=== PATIENT | female | born 1950 | race Caucasian/White ===

== ENCOUNTER 2018-10-10 08:43 | Inpatient (IN) ==
[~2018-10-10 08:43] MED LIST: Vancomycin 1,000 MG, Sodium Chloride IRRigation 1,000 ML IR ONE
[2018-10-10] MEDS ORDERED: Calcium Gluconate 1,000 MG/10 ML VIAL ONE (09:12)
[2018-10-10] MEDS ORDERED: Heparin 1,000 UNITS/500 mL 1,000 ML ONE (09:12)
[2018-10-10] MEDS ORDERED: Albuterol 2.5 MG/3 ML NEBULIZER IH ONE (09:31)
[2018-10-10] MEDS ORDERED: CeFAZolin Syr 2,000MG/20 ML 2,000 MG/20 ML SYRINGE IVPB ONE (09:31)
[2018-10-10] MEDS ORDERED: Albuterol 2.5 MG/3 ML NEBULIZER ONE (09:33)
[2018-10-10] MEDS ORDERED: *HR* OxyCODONE Immed Rel 5 MG TABLET PO ONE (09:40)
[2018-10-10] MEDS ORDERED: Acetaminophen IV 1,000 MG/100 ML INFUS..BTL IVPB ONE (09:41)
[2018-10-10] MEDS ORDERED: *HR* Promethazine 25 MG/ML VIAL IVP PRN (09:43)
[2018-10-10] MEDS ORDERED: *HR* OxyCODONE Immed Rel 5 MG TABLET PO PRN (09:43)
[2018-10-10] MEDS ORDERED: Ringers Solution, Lactated 1,000 ML IVC SCH (09:45)
[2018-10-10] MEDS ORDERED: NiCARdipine 2.5 MG/10 ML Syringe IVPB ONE (10:54)
[2018-10-10] MEDS ORDERED: *HR* Vasopressin 20 UNIT/ML VIAL ONE (10:54)
[2018-10-10 11:34] LABS: ABG Base Excess -4 mEq/L (-2 to 3); ABG Chloride 97 mEq/L (98-107); ABG Glucose 197 mg/dL (60-95); ABG HCO3 23 mEq/L (21-27); ABG Ionized Calcium 0.27 mmol/L (1.15-1.35); ABG Oxygen Saturation 100 % (95-98); ABG PCO2 46 mmHg (35-45); ABG PO2 277 mmHg (85-104); ABG TCO2 24 mEq/L (20-26)
[2018-10-10 13:42] LABS: ABG Base Excess -2 mEq/L (-2 to 3); ABG Chloride 101 mEq/L (98-107); ABG Glucose 103 mg/dL (60-95); ABG HCO3 22 mEq/L (21-27); ABG Ionized Calcium 1.13 mmol/L (1.15-1.35); ABG Oxygen Saturation 100 % (95-98); ABG PCO2 35 mmHg (35-45); ABG PH 7.42 pH Units (7.32-7.45); ABG PO2 236 mmHg (85-104); ABG TCO2 24 mEq/L (20-26)
[2018-10-10] MEDS ORDERED: Protamine Sulfate 50 MG/5 ML VIAL IVP ONE (15:18)
[2018-10-10] MEDS ORDERED: Fluticasone Propionate Nasal 50 MCG/SPRAY BOTTLE NS PRN (18:18)
[2018-10-10] MEDS ORDERED: *HR* HYDROcodone/Acet 5/325 mg TABLET PO PRN (18:18)
[2018-10-10] MEDS ORDERED: *HR* Labetalol 20 MG/4 ML SYRINGE IVP PRN (18:18)
[2018-10-10] MEDS ORDERED: Ondansetron 4 MG/2 ML VIAL IVP PRN (18:18)
[2018-10-10] MEDS ORDERED: Acetaminophen 325 MG TABLET PO PRN (18:18)
[2018-10-10] MEDS ORDERED: 0.9 % Sodium Chloride 1,000 ML IVC SCH (18:18)
[2018-10-10] MEDS ORDERED: Naloxone 0.4 MG/ML INJ IVP PRN (18:18)
[2018-10-10] MEDS: *HR* OxyCODONE Immed Rel 5 MG TABLET PO PRN (18:49)
[2018-10-10] MEDS: *HR* Metoprolol 5 MG/5 ML VIAL IVP SCH (18:53)
[2018-10-11] MEDS: *HR* Metoprolol 5 MG/5 ML VIAL IVP SCH ×2 (00:25→05:56)
[2018-10-11 02:15] LABS: Basophils % 0.1 %; Immature Granulocytes % 0.4 % (0-4); Lymphocytes # 0.8 K/mcL (0.6-4.6); Lymphocytes % 5.1 %; Mean Corpuscular HGB Conc 33.3 g/dL (31.6-35.5); Mean Corpuscular Hemoglobin 33.4 pg (28.0-33.3); Mean Corpuscular Volume 100.3 fL (83.0-100.0); Mean Platelet Volume 12.3 fL (9.4-12.4); Monocytes # 1.3 K/mcL (0.0-1.3); Monocytes % 8.2 %; Neutrophils # 13.9 K/mcL (1.6-8.9); Platelet Count 182 K/mcL (140-400); Red Blood Count 2.99 M/mcL (3.82-4.97); Red Cell Distribution Width 13.3 % (11.5-14.5); Segmented Neutrophils % 86.2 %; White Blood Count 16.2 K/mcL (4.3-11.1)
[2018-10-11 03:53] LABS: BUN/Creatinine Ratio 22 (6-26); Blood Urea Nitrogen 12 mg/dL (8-23); Calcium 8.2 mg/dL (8.6-10.3); Carbon Dioxide 22 mEq/L (23-29); Chloride 103 mEq/L (98-107); Glucose 142 mg/dL (70-105); Osmolality,Calculated 278 (280-300); Potassium 4.6 mEq/L (3.5-5.1); Sodium 133 mEq/L (136-145); eGFR For African Americans > 60 (> 60); eGFR For Non-African Americans > 60 (> 60)
[2018-10-11] MEDS ORDERED: *HR* Heparin 5,000 UNIT/ML VIAL SQ SCH ×2 (06:00)
[2018-10-11] MEDS: *HR* OxyCODONE Immed Rel 5 MG TABLET PO PRN (06:14)
[2018-10-11 07:51] VITALS: BP 115/60
[2018-10-11] MEDS ORDERED: Aspirin Enteric Coated 81 MG Tablet PO SCH (09:00)
[2018-10-11] MEDS ORDERED: Loratadine 10 MG TABLET PO SCH (09:00)
[2018-10-11] MEDS ORDERED: Spironolactone 25 MG TABLET PO SCH (09:00)
[2018-10-11] MEDS ORDERED: Furosemide 40 MG TABLET PO SCH (09:00)
[2018-10-11] MEDS ORDERED: Metoprolol XL (24 HR) Succ 25 MG TAB.ER.24H PO SCH (09:00)
== END 2018-10-11 10:45 | disposition home or self-care (01) | DRG 253 ==
LOC: SAMDAY 08:43 → 2NNU 18:34
PROVIDERS: ADMIT Surgery; ATTEND Surgery
PROC: VASFFBG (ICD-10-PCS; 2018-10-10 10:40)

== ENCOUNTER 2018-10-22 21:45 | Inpatient (IN) ==
[2018-10-23] MEDS ORDERED: Naloxone 0.4 MG/ML INJ IVP PRN ×2 (03:04→03:37)
[2018-10-23] MEDS: 0.9 % Sodium Chloride 1,000 ML IVC SCH ×2 (03:54→17:41)
[2018-10-23 04:35] LABS: Basophils % 0.4 %; Eosinophils # 0.1 K/mcL (0.0-0.6); Hematocrit 27.4 % (35.3-44.9); Hemoglobin 8.6 g/dL (11.5-15.4); Immature Granulocytes % 0.4 % (0-4); Lymphocytes # 1.5 K/mcL (0.6-4.6); Lymphocytes % 15.5 %; Mean Corpuscular HGB Conc 31.4 g/dL (31.6-35.5); Mean Corpuscular Hemoglobin 31.7 pg (28.0-33.3); Mean Corpuscular Volume 101.1 fL (83.0-100.0); Mean Platelet Volume 12.6 fL (9.4-12.4); Monocytes % 10.1 %; Neutrophils # 7.2 K/mcL (1.6-8.9); Platelet Count 314 K/mcL (140-400); Red Blood Count 2.71 M/mcL (3.82-4.97); Red Cell Distribution Width 14.5 % (11.5-14.5); Segmented Neutrophils % 72.6 %; White Blood Count 9.9 K/mcL (4.3-11.1)
[2018-10-23 04:43] LABS: INR 1.3; Prothrombin Time 15.3 Seconds (9.4-12.1)
[2018-10-23 04:45] LABS: Activated Partial Thrombo Time 33.4 Seconds (26.0-36.0)
[2018-10-23 04:55] LABS: Alanine Aminotransferase 8 Units/L (7-52); Albumin 3.4 g/dL (3.5-5.7); Albumin/Globulin Ratio 1.1 (1.1-2.2); Alkaline Phosphatase 65 Units/L (34-104); Aspartate Amino Transferase 9 Units/L (13-39); BUN/Creatinine Ratio 16 (6-26); Bilirubin,Total 0.5 mg/dL (0.3-1.0); Blood Urea Nitrogen 11 mg/dL (8-23); Calcium 8.6 mg/dL (8.6-10.3); Carbon Dioxide 22 mEq/L (23-29); Chloride 101 mEq/L (98-107); Glucose 103 mg/dL (70-105); Magnesium 1.9 mg/dL (1.6-2.6); Osmolality,Calculated 276 (280-300); Potassium 3.9 mEq/L (3.5-5.1); Sodium 133 mEq/L (136-145); Total Protein 6.4 g/dL (6.4-8.9); Troponin I < 0.03 ng/mL (< 0.04); eGFR For African Americans > 60 (> 60); eGFR For Non-African Americans > 60 (> 60)
[2018-10-23] MEDS: Piperacillin/Tazobactam 3.375 GM in 0.9 % Sodium Chloride Mini Bag 100 ML IVPB SCH ×2 (10:15→16:19)
[2018-10-23] MEDS ORDERED: Fluticasone Propionate Nasal 50 MCG/SPRAY BOTTLE NS PRN (13:20)
[2018-10-23] MEDS: Apixaban 5 MG TABLET PO SCH (20:59)
[2018-10-23 21:20] LABS: Bilirubin,Urine Negative (Negative); Blood,Urine Negative (Negative); Clarity,Urine Clear (Clear); Color,Urine Yellow (Yellow); Glucose,Urine (UA) Normal (Normal); Ketones,Urine Negative (Negative); Leukocyte Esterase,Urine Negative (Negative); Nitrite,Urine Negative (Negative); Protein,Urine Negative (Neg-Trace); Specific Gravity,Urine 1.016 (1.010-1.025); Urobilinogen,Urine Normal (Normal)
[2018-10-24] MEDS: Piperacillin/Tazobactam 3.375 GM in 0.9 % Sodium Chloride Mini Bag 100 ML IVPB SCH ×3 (00:54→15:43)
[2018-10-24 02:35] LABS: Basophils # 0.1 K/mcL (0.0-0.2); Basophils % 0.8 %; Eosinophils # 0.4 K/mcL (0.0-0.6); Eosinophils % 4.6 %; Hemoglobin 8.6 g/dL (11.5-15.4); Immature Granulocytes % 0.4 % (0-4); Lymphocytes # 1.8 K/mcL (0.6-4.6); Lymphocytes % 22.9 %; Mean Corpuscular HGB Conc 30.7 g/dL (31.6-35.5); Mean Corpuscular Hemoglobin 32.1 pg (28.0-33.3); Mean Corpuscular Volume 104.5 fL (83.0-100.0); Mean Platelet Volume 12.2 fL (9.4-12.4); Monocytes % 12.6 %; Neutrophils # 4.6 K/mcL (1.6-8.9); Platelet Count 306 K/mcL (140-400); Red Blood Count 2.68 M/mcL (3.82-4.97); Red Cell Distribution Width 14.6 % (11.5-14.5); Segmented Neutrophils % 58.7 %; White Blood Count 7.8 K/mcL (4.3-11.1)
[2018-10-24 02:54] LABS: BUN/Creatinine Ratio 12 (6-26); Blood Urea Nitrogen 8 mg/dL (8-23); Calcium 8.4 mg/dL (8.6-10.3); Carbon Dioxide 24 mEq/L (23-29); Chloride 103 mEq/L (98-107); Glucose 113 mg/dL (70-105); Osmolality,Calculated 277 (280-300); Potassium 4.1 mEq/L (3.5-5.1); Sodium 134 mEq/L (136-145); eGFR For African Americans > 60 (> 60); eGFR For Non-African Americans > 60 (> 60)
[2018-10-24] MEDS: Spironolactone 25 MG TABLET PO SCH (09:06)
[2018-10-24] MEDS: Apixaban 5 MG TABLET PO SCH (09:06)
[2018-10-24] MEDS: Furosemide 40 MG TABLET PO SCH (09:06)
[2018-10-24] MEDS: Aspirin Enteric Coated 81 MG Tablet PO SCH (09:06)
[2018-10-24] MEDS: Metoprolol XL (24 HR) Succ 25 MG TAB.ER.24H PO SCH (09:06)
[2018-10-25] MEDS: Piperacillin/Tazobactam 3.375 GM in 0.9 % Sodium Chloride Mini Bag 100 ML IVPB SCH ×3 (00:46→15:38)
[2018-10-25 06:34] LABS: Hematocrit 28.5 % (35.3-44.9); Mean Corpuscular HGB Conc 31.6 g/dL (31.6-35.5); Mean Corpuscular Hemoglobin 32.3 pg (28.0-33.3); Mean Corpuscular Volume 102.2 fL (83.0-100.0); Mean Platelet Volume 12.2 fL (9.4-12.4); Platelet Count 329 K/mcL (140-400); Red Blood Count 2.79 M/mcL (3.82-4.97); Red Cell Distribution Width 14.6 % (11.5-14.5); White Blood Count 7.2 K/mcL (4.3-11.1)
[2018-10-25 07:02] LABS: BUN/Creatinine Ratio 10 (6-26); Blood Urea Nitrogen 7 mg/dL (8-23); Calcium 8.6 mg/dL (8.6-10.3); Carbon Dioxide 25 mEq/L (23-29); Chloride 101 mEq/L (98-107); Glucose 103 mg/dL (70-105); Osmolality,Calculated 280 (280-300); Potassium 4.1 mEq/L (3.5-5.1); Sodium 136 mEq/L (136-145); eGFR For African Americans > 60 (> 60); eGFR For Non-African Americans > 60 (> 60)
[2018-10-25 07:19] LABS: Folate 8.3 ng/mL (3.0-16.0)
[2018-10-25] MEDS: Spironolactone 25 MG TABLET PO SCH (08:29)
[2018-10-25] MEDS: Metoprolol XL (24 HR) Succ 25 MG TAB.ER.24H PO SCH (08:29)
[2018-10-25] MEDS: Aspirin Enteric Coated 81 MG Tablet PO SCH (08:29)
[2018-10-25] MEDS: Furosemide 40 MG TABLET PO SCH (08:30)
[2018-10-25 11:25] LABS: C-Reactive Protein 18 mg/L (Less than 10)
[2018-10-25] MEDS ORDERED: *HR* Propofol 200 MG/20 ML VIAL IVP ONE (18:16)
[2018-10-25] MEDS ORDERED: Lidocaine -MPF 2% 2 ML VIAL ONE (18:16)
[2018-10-25] MEDS ORDERED: Dexamethasone 4 MG/ML VIAL ONE (18:16)
[2018-10-25] MEDS ORDERED: *HR* FentaNYL (PF) 100 MCG/2 ML VIAL ONE ×2 (18:16→18:51)
[2018-10-25] MEDS ORDERED: Ondansetron 4 MG/2 ML VIAL ONE (18:16)
[2018-10-25] MEDS ORDERED: Vancomycin 1,000 MG VIAL ONE ×2 (18:21→18:55)
[2018-10-25] MEDS ORDERED: *HR* PHENYLEPHRINE 1,000 MCG/10 ML SYRINGE IVP ONE (18:53)
[2018-10-25] MEDS ORDERED: *HR* HYDROMORPHONE 2 MG/ML VIAL ONE (19:04)
[2018-10-25] MEDS ORDERED: *HR* OxyCODONE Immed Rel 5 MG TABLET PO PRN ×2 (21:49)
[2018-10-25] MEDS ORDERED: Acetaminophen 325 MG TABLET PO PRN ×2 (21:49)
[2018-10-25] MEDS ORDERED: *HR* HYDROcodone/Acet 5/325 mg TABLET PO PRN ×2 (21:49)
[2018-10-25] MEDS ORDERED: Naloxone 0.4 MG/ML INJ IVP PRN (21:49)
[2018-10-25] MEDS ORDERED: Ondansetron 4 MG/2 ML VIAL IVP PRN (22:11)
[2018-10-26] MEDS: Piperacillin/Tazobactam 3.375 GM in 0.9 % Sodium Chloride Mini Bag 100 ML IVPB SCH ×2 (00:25→08:15)
[2018-10-26 05:55] LABS: Hematocrit 28.8 % (35.3-44.9); Hemoglobin 9.1 g/dL (11.5-15.4); Mean Corpuscular HGB Conc 31.6 g/dL (31.6-35.5); Mean Corpuscular Hemoglobin 31.6 pg (28.0-33.3); Mean Platelet Volume 12.3 fL (9.4-12.4); Platelet Count 333 K/mcL (140-400); Red Blood Count 2.88 M/mcL (3.82-4.97); Red Cell Distribution Width 14.6 % (11.5-14.5); White Blood Count 8.7 K/mcL (4.3-11.1)
[2018-10-26 06:18] LABS: BUN/Creatinine Ratio 11 (6-26); Blood Urea Nitrogen 11 mg/dL (8-23); Calcium 8.4 mg/dL (8.6-10.3); Carbon Dioxide 25 mEq/L (23-29); Chloride 101 mEq/L (98-107); Glucose 159 mg/dL (70-105); Osmolality,Calculated 287 (280-300); Sodium 137 mEq/L (136-145); eGFR For African Americans > 60 (> 60); eGFR For Non-African Americans 57 (> 60)
[2018-10-26 06:22] LABS: % Iron Saturation 8 % (15-50); Iron 19 mcg/dL (50-170); Transferrin 178 mg/dL (203-362)
[2018-10-26 06:33] LABS: Ferritin 181 ng/mL (10-120)
[2018-10-26] MEDS: *HR* Heparin 5,000 UNIT/ML VIAL SQ SCH ×2 (08:16→17:57)
[2018-10-26] MEDS: Aspirin Enteric Coated 81 MG Tablet PO SCH (08:18)
[2018-10-26] MEDS: Loratadine 10 MG TABLET PO SCH (08:18)
[2018-10-26] MEDS ORDERED: Aminoglycoside Consult 1 EACH MC ONE (08:26)
[2018-10-26] MEDS: Metoprolol XL (24 HR) Succ 25 MG TAB.ER.24H PO SCH ×2 (08:44→12:53)
[2018-10-26] MEDS ORDERED: Loratadine 10 MG TABLET PO SCH (09:00)
[2018-10-26] MEDS ORDERED: Furosemide 40 MG TABLET PO SCH (09:00)
[2018-10-26] MEDS ORDERED: Fluticasone Propionate Nasal 50 MCG/SPRAY BOTTLE NS PRN (09:00)
[2018-10-26] MEDS ORDERED: Spironolactone 25 MG TABLET PO SCH (09:00)
[2018-10-27] MEDS: *HR* Heparin 5,000 UNIT/ML VIAL SQ SCH ×2 (05:03→17:16)
[2018-10-27 07:13] LABS: Hematocrit 27.4 % (35.3-44.9); Hemoglobin 8.5 g/dL (11.5-15.4); Mean Corpuscular Hemoglobin 31.4 pg (28.0-33.3); Mean Corpuscular Volume 101.1 fL (83.0-100.0); Mean Platelet Volume 12.5 fL (9.4-12.4); Platelet Count 315 K/mcL (140-400); Red Blood Count 2.71 M/mcL (3.82-4.97); Red Cell Distribution Width 15.1 % (11.5-14.5)
[2018-10-27 07:26] LABS: Calcium 8.5 mg/dL (8.6-10.3); Potassium 3.9 mEq/L (3.5-5.1)
[2018-10-27] MEDS: Metoprolol XL (24 HR) Succ 25 MG TAB.ER.24H PO SCH (09:05)
[2018-10-27] MEDS: Aspirin Enteric Coated 81 MG Tablet PO SCH (09:05)
[2018-10-27] MEDS: Loratadine 10 MG TABLET PO SCH (09:05)
[2018-10-27] MEDS ORDERED: 0.9 % Sodium Chloride 1,000 ML IVC SCH ×2 (10:30→18:05)
[2018-10-27 11:54] LABS: Bilirubin,Urine Negative (Negative); Blood,Urine Negative (Negative); Clarity,Urine Clear (Clear); Color,Urine Yellow (Yellow); Glucose,Urine (UA) Normal (Normal); Ketones,Urine Negative (Negative); Leukocyte Esterase,Urine Negative (Negative); Nitrite,Urine Negative (Negative); Protein,Urine Trace mg/dL (Neg-Trace); Specific Gravity,Urine 1.015 (1.010-1.025); Urobilinogen,Urine Normal (Normal)
[2018-10-28] MEDS: *HR* Heparin 5,000 UNIT/ML VIAL SQ SCH (06:43)
[2018-10-28 08:21] LABS: Basophils # 0.1 K/mcL (0.0-0.2); Basophils % 0.9 %; Eosinophils # 0.3 K/mcL (0.0-0.6); Eosinophils % 3.1 %; Hematocrit 27.9 % (35.3-44.9); Hemoglobin 8.7 g/dL (11.5-15.4); Immature Granulocytes % 0.5 % (0-4); Lymphocytes # 1.3 K/mcL (0.6-4.6); Lymphocytes % 16.6 %; Mean Corpuscular HGB Conc 31.2 g/dL (31.6-35.5); Mean Corpuscular Hemoglobin 31.5 pg (28.0-33.3); Mean Corpuscular Volume 101.1 fL (83.0-100.0); Mean Platelet Volume 11.6 fL (9.4-12.4); Monocytes % 12.5 %; Neutrophils # 5.3 K/mcL (1.6-8.9); Platelet Count 299 K/mcL (140-400); Red Blood Count 2.76 M/mcL (3.82-4.97); Red Cell Distribution Width 14.9 % (11.5-14.5); Segmented Neutrophils % 66.4 %
[2018-10-28 08:38] LABS: Calcium 8.7 mg/dL (8.6-10.3); Potassium 4.3 mEq/L (3.5-5.1)
[2018-10-28] MEDS: Aspirin Enteric Coated 81 MG Tablet PO SCH (08:52)
[2018-10-28] MEDS: Loratadine 10 MG TABLET PO SCH (08:52)
[2018-10-28] MEDS: 0.9 % Sodium Chloride 1,000 ML IVC SCH (13:59)
[2018-10-28 14:02] LABS: Sodium, Urine 20.8 mEq/L
[2018-10-28] MEDS ORDERED: Perflutren Lipid Microsphere 1.3 ML in 0.9 % Sodium Chloride 8.7 ML IVP ONE ×2 (19:04→23:27)
[2018-10-28] MEDS: Doxycycline 100 MG CAPSULE PO SCH (20:31)
[2018-10-28] MEDS: Apixaban 5 MG TABLET PO SCH (20:31)
[2018-10-29] MEDS: 0.9 % Sodium Chloride 1,000 ML IVC SCH (02:03)
[2018-10-29 07:14] LABS: Hematocrit 27.4 % (35.3-44.9); Hemoglobin 8.6 g/dL (11.5-15.4); Mean Corpuscular HGB Conc 31.4 g/dL (31.6-35.5); Mean Corpuscular Volume 101.9 fL (83.0-100.0); Mean Platelet Volume 12.2 fL (9.4-12.4); Platelet Count 281 K/mcL (140-400); Red Blood Count 2.69 M/mcL (3.82-4.97); Red Cell Distribution Width 14.9 % (11.5-14.5); White Blood Count 7.5 K/mcL (4.3-11.1)
[2018-10-29] MEDS ORDERED: Perflutren Lipid Microsphere 1.3 ML in 0.9 % Sodium Chloride 8.7 ML IVP ONE (07:17)
[2018-10-29 07:34] LABS: Potassium 4.5 mEq/L (3.5-5.1)
[2018-10-29] MEDS: Loratadine 10 MG TABLET PO SCH (09:27)
[2018-10-29] MEDS: Doxycycline 100 MG CAPSULE PO SCH ×2 (09:27→21:25)
[2018-10-29] MEDS: Aspirin Enteric Coated 81 MG Tablet PO SCH (09:27)
[2018-10-29] MEDS: Apixaban 5 MG TABLET PO SCH ×2 (09:27→21:25)
[2018-10-29 10:56] LABS: Complement C3 132 mg/dL (87-200)
[2018-10-29 13:12] LABS: Uric Acid 6.1 mg/dL (2.3-7.6)
[2018-10-30 05:23] LABS: Potassium 4.2 mEq/L (3.5-5.1)
[2018-10-30] MEDS: Apixaban 5 MG TABLET PO SCH ×2 (09:00→22:19)
[2018-10-30] MEDS: Doxycycline 100 MG CAPSULE PO SCH ×2 (09:00→22:19)
[2018-10-30] MEDS: Loratadine 10 MG TABLET PO SCH (09:00)
[2018-10-30] MEDS: Aspirin Enteric Coated 81 MG Tablet PO SCH (09:00)
[2018-10-30] MEDS: 0.9 % Sodium Chloride 1,000 ML IVC SCH (09:07)
[2018-10-31] MEDS: 0.9 % Sodium Chloride 1,000 ML IVC SCH ×2 (00:31→14:48)
[2018-10-31 05:14] LABS: Calcium 8.6 mg/dL (8.6-10.3); Potassium 4.4 mEq/L (3.5-5.1)
[2018-10-31] MEDS: Loratadine 10 MG TABLET PO SCH (09:32)
[2018-10-31] MEDS: Aspirin Enteric Coated 81 MG Tablet PO SCH (09:32)
[2018-10-31] MEDS: Apixaban 5 MG TABLET PO SCH ×2 (09:33→22:16)
[2018-10-31] MEDS: Doxycycline 100 MG CAPSULE PO SCH ×2 (09:33→22:16)
[2018-10-31] MEDS: Amoxicillin/Clavulanate 500 MG TABLET PO SCH (17:11)
[2018-11-01] MEDS: 0.9 % Sodium Chloride 1,000 ML IVC SCH (03:15)
[2018-11-01 06:59] LABS: Calcium 8.5 mg/dL (8.6-10.3); Potassium 4.4 mEq/L (3.5-5.1)
[2018-11-01 08:25] VITALS: BP 130/45
[2018-11-01] MEDS: Loratadine 10 MG TABLET PO SCH (08:52)
[2018-11-01] MEDS: Amoxicillin/Clavulanate 500 MG TABLET PO SCH (08:52)
[2018-11-01] MEDS: Doxycycline 100 MG CAPSULE PO SCH (08:52)
[2018-11-01] MEDS: Aspirin Enteric Coated 81 MG Tablet PO SCH (08:52)
[2018-11-01] MEDS: Apixaban 5 MG TABLET PO SCH (08:52)
== END 2018-11-01 15:23 | disposition home health service (06) | DRG 901 ==
LOC: 2NENU → SUATTDRO 10-23 02:30
PROVIDERS: ADMIT Internal Medicine; ATTEND Internal Medicine